=== PATIENT | female | born 1975 | race Asian ===

== ENCOUNTER → 2016-07-26 | Outpatient (CLI) | payer OTHER | END | disposition home or self-care (01) | LOC: CFH 13:12 → EDSTATUS 13:30 | PROVIDERS: ATTEND Family Medicine | DX: E04.2 Nontoxic multinodular goiter (principal) | CPT/HCPCS: 76536 ==

== ENCOUNTER → 2018-04-23 | Outpatient (CLI) | payer OTHER | END | disposition home or self-care (01) | LOC: CVU 13:31 | PROVIDERS: ATTEND Family Medicine | DX: R00.2 Palpitations (principal); E11.9 Type 2 diabetes mellitus without complications | CPT/HCPCS: 93306 ==